=== PATIENT | male | born 1995 | race Caucasian/White ===

== ENCOUNTER 2025-01-25 12:06 | Emergency (ER) | payer BC, MEDICAID, SELFPAY ==
[2025-01-25 12:12] VITALS: PULSE 98; RESP 17; O2SAT 96; BMI 58.7
--- NOTE | 2025-01-25 12:40 | W.ED.WOUNDLC ---
HPI - Wound/Laceration General: Chief Complaint: Wound/Laceration Stated Complaint: knot on right leg Time Seen by Provider: 01/25/25 12:13 History of Present Illness: 29-year-old male is presenting with lump on the right posterior thigh that started 3 days ago. He states it initially started as a small pimple that they tried to pull out with tweezers and now it has spread to a larger area of redness. He has some pain with it, denies any fevers chills or generalized illness symptoms. No previous history of similar episodes. Associated symptoms: Denies chills, fever(s), nausea or vomiting Related Data Previous Rx's ?Medication ?Instructions ?Recorded clindamycin HCl 150 mg capsule 450 mg (3 x 150 mg) PO TID 10 days 01/25/25 (Cleocin HCl) #90 caps Review of Systems Const: Denies: fever(s), chills or body aches Eyes: Denies: change in vision ENMT: Denies: throat pain Card: Denies: chest pain or palpitations Resp: Denies: dyspnea or productive cough GI: Denies: abdominal pain, nausea, vomiting or diarrhea : Denies: difficulty urinating Musc: Reports: extremity pain Skin/Breast: Reports: rash Neuro: Denies: headache(s), numbness in extremities or weakness in extremities Endo: Denies: polyuria Cl/Lymph: Denies: easy bruising or easy bleeding All/Imm: Denies: urticaria Physical Exam Narrative: EXAM NARRATIVE: GEN: well-appearing, in no acute distress HEENT: -Head: NC/AT; -Eyes: PERRL, EOMI. No discharge or redness; -Ears: External ears are normal. Normal TMs. -Nose: Normal nares. -Mouth and throat: MMM. Normal gums, mucosa, palate,. Good dentition. NECK: Supple, with no masses. CV: RRR, no m/r/g. LUNGS: CTAB, no w/r/c. ABD: Soft, NT/ND, NBS, no masses or organomegaly. SKIN: 6 cm diameter circular well?circumscribed localized area of raised warm erythema with a small punctate scab in the center with no induration and no fluctuance and no drainage to the right posterior thigh, warm, well perfused. No skin rashes or abnormal lesions. MSK: No deformities or signs of scoliosis. Normal gait. EXT: No clubbing, cyanosis, or edema. NEURO: Ambulating with no limitations. Normal muscle strength and tone. No focal deficits. PSYCH: Good Judgment. AOx3. Normal memory, mood, and affect. Course Vital Signs: Vital signs: Vital Signs Pulse Rate 98 01/25/25 12:12 Respiratory Rate 17 01/25/25 12:12 Pulse Oximetry 96 01/25/25 12:12 Oxygen Delivery Me thod Room Air 01/25/25 12:12 MDM - Wound/Laceration Medical Decision Making Localized cellulitis no appreciable evidence for underlying fluid collection or an abscess. Will treat with a course of clindamycin. No systemic signs of infectious symptoms. Discussed signs and symptoms to come back and return to the emergency room. No radiology studies performed this visit Discharge Plan Discharge Patient Disposition: Home Clinical Impression: Cellulitis Condition: Stable Prescriptions: New clindamycin HCl [Cleocin HCl] 150 mg capsule 450 mg PO TID 10 Days Qty: 90 0RF Discharge Orders: Discharge ED (Routine); Ordered 01/25/25 Ordered By: Anjel Black Patient Instructions: Cellulitis (ED) Print Language: Latvian Coding Level of Care Code ED Acute Care Physical Therapist for [facility]
[2025-01-25] MEDS: clindamycin 150 mg Capsule 450 MG PO (12:56)
[2025-01-25 12:59] VITALS: BP 130/70; PULSE 103; O2SAT 96
== END 2025-01-25 13:00 | disposition home or self-care (01) ==
PROVIDERS: Emergency Provider Emergency Medicine
DX: L03.115 Cellulitis of right lower limb (principal)
CPT/HCPCS: 99283; J9999